=== PATIENT | female | born 1940 | race Caucasian/White ===

== ENCOUNTER 2016-05-05 13:13 | Emergency (ER) | payer OTHER ==
[~2016-05-05 13:13] MED LIST: ALBU18002 INH; ASPCH81X PO; CALCTAB7 PO; CEFD300C3 PO; CODCAP PO; CORACAP6 PO; LPT40 PO; LSN40 PO; MAGN400T5 PO; METO1TAB70 PO; MULTTAB PO; POTA1TAB PO; [UNRECOGNIZED DRUG - CODE] PO
[2016-05-05 13:20] VITALS: TEMP 36.3
[2016-05-05] MEDS ORDERED: NAPR1TAB9 PO (13:41)
[2016-05-05] MEDS ORDERED: FRS/40 PO (13:41)
[2016-05-05 14:53] LABS: BASO % 0.5 %; BASO ABS # 0.04 K/uL (0-0.2); COMPLETE YES; HEMATOCRIT 43.3 % (37-47); IG% 0.4 %; LYMPH % 22.5 %; LYMPH ABS # 1.87 K/uL (1.2-3.4); MEAN CELL VOLUME 93.1 fL (80-100); MEAN CORPUSCULAR HEMOGLOBIN 30.3 pg (25-34); MEAN CORPUSCULAR HGB CONC 32.6 g/dl (32-36); MEAN PLATELET VOLUME 9.4 fL (7.4-10.4); MONO % 11.3 %; NEUT % 63.3 %; PLATELET COUNT 193 K/uL (130-400); RED BLOOD COUNT 4.65 M/uL (4.2-5.4); WHITE BLOOD COUNT 8.32 K/uL (4.8-10.8)
[2016-05-05 15:01] LABS: PROTHROMBIN TIME (PATIENT) 10.8 SECONDS (9.0-12.0)
[2016-05-05 15:44] LABS: BLOOD UREA NITROGEN 20 mg/dl (7-18); BUN/CREATININE RATIO 24.3 (10-20); CALCIUM 8.6 mg/dl (8.5-10.1); CARBON DIOXIDE 32 mmol/L (21-32); CHLORIDE 104 mmol/L (98-107); CREATININE 0.83 mg/dl (0.60-1.20); GLUCOSE 114 mg/dl (70-99); SODIUM 142 mmol/L (136-145)
--- NOTE | 2016-05-05 15:45 | DIAGNOSTIC IMAGING REPORT ---
EXAMINATION: PELVIC ULTRASOUND CLINICAL HISTORY: eval for mass VAGINAL BLEEDING COMPARISON STUDY: None FINDINGS: The uterus measured enlarged at 9.5 cm.. The endometrial stripe measured thickened heterogeneous endometrium measuring up to 2.4 cm. The right ovary measured not seen presumably due to atrophic change. The left ovary measured not seen presumably due to atrophic change.. There was no evidence of pathologic free pelvic fluid. IMPRESSION: Enlarged heterogeneous uterus. Thickened endometrium considered abnormal for age at 2.4 cm. Diagnostic possibilities include endometrial neoplasia versus hyperplasia Electronically signed by: Jimmy Cavanaugh M.D. 05/05/2016 3:44 PM Dictated Date/Time: 05/05/2016 3:42 PM
[2016-05-05 16:05] VITALS: BP 180/101; PULSE 88; O2SAT 95
--- NOTE | 2016-05-05 19:42 | EMERGENCY ROOM VISIT NOTE ---
History Report prepared by Blaise: Verna Ang Under the Supervision of: Dr. Zbigniew Pressley M.D. First contact with patient: 13:47 Chief Complaint: ED VAG BLEEDING Stated Complaint: BLEEDING FROM VAGINA History of Present Illness The patient is a 76 year old female who presents to the Emergency Room with complaints of vaginal bleeding beginning 2 days ago. The patient is unable to quantify how many pads she uses a day. She notes that her blood was dark and brown when she saw it. She denies any weight loss, abdominal pain pain, fever, vomiting, history of uterine or ovarian cancer, rectal bleeding, and urinary symptoms. Source of History: patient Onset: 2 days ago Position: other (vaginal) Quality: other (dark bleeding) Timing: constant Associated Symptoms: No abdominal pain, No fevers, No urinary symptoms, No vomiting Note: She denies any weight loss, history of uterine or ovarian cancer. Review of Systems See HPI for pertinent positives & negatives. A total of 10 systems reviewed and were otherwise negative. Past Medical & Surgical Medical Problems: (1) Cellulitis (2) COPD (chronic obstructive pulmonary disease) Surgical Problems: (1) History of tubal ligation Family History Diabetes mellitus FATHER FHx: coronary artery disease MOTHER RI MOTHER Social History Smoking Status: Former Smoker Drug Use: none Marital Status: Occupation Status: retired Current/Historical Medications Scheduled Aspirin (Aspirin Chewable), 81 MG PO DAILY Atorvastatin (Atorvastatin Calcium), 40 MG PO QPM Calcium Carbonate-Vitamin D W/ (Caltrate 600 Plus), 1 TAB PO DAILY Cod Liver Oil (Cod Liver Oil), 2 CAP PO BID Furosemide (Lasix), 40 MG PO QAM Lisinopril (Lisinopril), 40 MG PO QPM Magnesium Oxide (Mag-Ox), 400 MG PO DAILY Metoprolol Succinate (Toprol Xl), 200 MG PO QAM Multivitamins/Minerals (Mvi With Minerals), 1 TAB PO DAILY Naproxen (Aleve), 440 MG PO QAM Potassium Gluconate (Potassium Gluconate), 595 MG PO DAILY Scheduled PRN Albuterol Sulfate (Proair Respiclick), 2 PUFFS INH Q4 PRN for Shortness of Breath Allergies Coded Allergies: Oxycodone (Verified Adverse Reaction, Mild, CONSTIPATION, 05/05/16) Propoxyphene (Verified Adverse Reaction, Mild, CONSTIPATION, 05/05/16) Physical Exam Vital Signs Date Time Temp Pulse Resp B/P Pulse Ox O2 Delivery O2 Flow Rate FiO2 05/05/16 16:05 88 20 180/101 95 Nasal Cannula 2.0 05/05/16 13:20 36.3 60 18 142/77 95 Nasal Cannula 2.0 Physical Exam Constitutional: Vital signs reviewed. Eyes: Pupils are equal round reactive to light. Conjunctiva are noninjected. ENT: Pharynx is clear without erythema or exudate. Mucous membranes are moist. Neck supple without meningeal signs. Respiratory: Clear to auscultation bilaterally. Breath sounds are equal bilaterally. Cardiovascular: Regular rate and rhythm. No rubs or gallops. GI: Soft, nondistended and nontender. Bowel sounds are present. Musculoskeletal: Bilateral lower extremity edema, chronic discoloration. No cellulitis. Integumentary: No cyanosis. Neurological: The patient is awake and alert. No focal deficits. Psychiatric: Normal affect. Medical Decision & Procedures ER Provider Diagnostic Interpretation: US results as stated below per my review and radiologist interpretation. EXAMINATION: PELVIC ULTRASOUND FINDINGS: The uterus measured enlarged at 9.5 cm.. The endometrial stripe measured thickened heterogeneous endometrium measuring up to 2.4 cm. The right ovary measured not seen presumably due to atrophic change. The left ovary measured not seen presumably due to atrophic change.. There was no evidence of pathologic free pelvic fluid. IMPRESSION: Enlarged heterogeneous uterus. Thickened endometrium considered abnormal for age at 2.4 cm. Diagnostic possibilities include endometrial neoplasia versus hyperplasia Electronically signed by: Jimmy Cavanaugh M.D. 05/05/2016 3:44 PM Dictated Date/Time: 05/05/2016 3:42 PM Laboratory Results 05/05/16 14:46 Red Blood Count 4.65, Mean Corpuscular Volume 93.1, Mean Corpuscular Hemoglobin 30.3, Mean Corpuscular Hemoglobin Concent 32.6, Mean Platelet Volume 9.4, Neutrophils (%) (Auto) 63.3, Lymphocytes (%) (Auto) 22.5, Monocytes (%) (Auto) 11.3, Eosinophils (%) (Auto) 2.0, Basophils (%) (Auto) 0.5, Neutrophils # (Auto ) 5.27, Lymphocytes # (Auto) 1.87, Monocytes # (Auto) 0.94, Eosinophils # (Auto ) 0.17, Basophils # (Auto) 0.04 05/05/16 14:46 Test 05/05/16 14:46 White Blood Count 8.32 K/uL (4.8-10.8) Red Blood Count 4.65 M/uL (4.2-5.4) Hemoglobin 14.1 g/dL (12.0-16.0) Hematocrit 43.3 % (37-47) Mean Corpuscular Volume 93.1 fL (80-100) Mean Corpuscular Hemoglobin 30.3 pg (25-34) Mean Corpuscular Hemoglobin Concent 32.6 g/dl (32-36) Platelet Count 193 K/uL (130-400) Mean Platelet Volume 9.4 fL (7.4-10.4) Neutrophils (%) (Auto) 63.3 % Lymphocytes (%) (Auto) 22.5 % Monocytes (%) (Auto) 11.3 % Eosinophils (%) (Auto) 2.0 % Basophils (%) (Auto) 0.5 % Neutrophils # (Auto) 5.27 K/uL (1.4-6.5) Lymphocytes # (Auto) 1.87 K/uL (1.2-3.4) Monocytes # (Auto) 0.94 K/uL (0.11-0.59) Eosinophils # (Auto) 0.17 K/uL (0-0.5) Basophils # (Auto) 0.04 K/uL (0-0.2) RDW Standard Deviation 55.3 fL (36.4-46.3) RDW Coefficient of Variation 16.4 % (11.5-14.5) Immature Granulocyte % (Auto) 0.4 % Immature Granulocyte # (Auto) 0.03 K/uL (0.00-0.02) Prothrombin Time 10.8 SECONDS (9.0-12.0) Prothromb Time International Ratio 1.0 (0.9-1.1) Activated Partial Thromboplast Time 25.3 SECONDS (21.0-31.0) Partial Thromboplastin Ratio 1.0 Anion Gap 6.0 mmol/L (3-11) Estimated GFR () 78.8 Estimated GFR (Non- 68.0 BUN/Creatinine Ratio 24.3 (10-20) Calcium Level 8.6 mg/dl (8.5-10.1) Laboratory results as reviewed by ky. ED Course 1347: The patient was evaluated in room C1. A complete history and physical exam was performed. 1557: I discussed the test results with the patient. She does not have a automotive service porter so I paged Dr. Giles of [facility] gynecology. 1400: I spoke to Dr. Giles, he recommends outpatient biopsy. 1402: I discussed the treatment plan with the patient. 1407: Upon reevaluation, the patient appeared to have improvement of her symptoms. I discussed tonight's findings with the patient. She verbalized agreement of the treatment plan. The patient was discharged home. Medical Decision This is a 76-year-old female presents with uterine bleeding. Differential diagnosis includes polyp, fibroid, endometrial cancer, uterine cancer, ovarian cancer. I did perform a limited focused review of portions of the patient's old chart on the electronic medical record. The patient has had no recent pertinent visits to this hospital. I did evaluate the patient as noted above. IV access was established. I did order and review the patient's blood work as noted in the electronic medical record. She does not have anemia. I did order an ultrasound of the pelvis. I did review the images myself as well as the radiology report as described above. She does have an enlarged heterogeneous uterus with thickened endometrium. I did discuss the test results with the patient. She will require outpatient endometrial biopsy and further workup. I did discuss the case with Dr. Stern of gynecology. He stated that the patient should call on Saturday for an appointment for an outpatient biopsy. He did not request any further testing in the ED. I did discuss the plan with the patient. She and her daughter were content with this plan. They were given return instructions as outlined below. Consults Time Called: 1556 Consulting Physician: Dr. Giles - [facility] Returned Call: [address] Giles, he recommends outpatient biopsy. Impression Primary Impression: Abnormal vaginal bleeding Scribe Attestation The scribe's documentation has been prepared under my direct and personally reviewed by me in its entirety. I confirm that the note above accurately reflects all work, treatment, procedures, and medical decision making performed by me. Departure Information Dispostion Home / Self-Care Referrals Anthony Patrick M.D. (PCP) Forms HOME CARE DOCUMENTATION FORM, IMPORTANT VISIT INFORMATION, WORK / SCHOOL INSTRUCTIONS Patient Instructions ED Bleed Irregular Vaginal, My [facility] Additional Instructions You have been examined and treated today on an emergency basis only. This is not a substitute for, or an effort to provide, complete comprehensive medical care. It is impossible to recognize and treat all injuries or illnesses in a single emergency department visit. It is therefore important that you follow up closely with Dr. Stern of gynecology for outpatient workup including endometrial biopsy. Call as soon as possible for an appointment. Return for worsening symptoms or if you develop fever, vomiting, lightheadedness, shortness of breath, abdominal pain or any other concerning symptoms.
[2016-07-17] MEDS ORDERED: DOXY25TA19 PO (12:39)
[2016-07-17] MEDS ORDERED: LISI40TA PO (12:39)
== END 2016-05-05 16:21 | disposition home or self-care (01) ==
LOC: C.EDB 13:14 → C.EDC 16:21
DX: N93.9 Abnormal uterine and vaginal bleeding, unspecified (principal); J44.9 Chronic obstructive pulmonary disease, unspecified; Z79.82 Long term (current) use of aspirin; Z79.899 Other long term (current) drug therapy

== ENCOUNTER → 2016-05-14 | Outpatient (CLI) | payer OTHER ==
[~2016-05-14] MED LIST changes: -CEFD300C3 PO; -CORACAP6 PO; +DOXY25TA19 PO; +FRS/40 PO; +LISI40TA PO; +NAPR1TAB9 PO; -[UNRECOGNIZED DRUG - CODE] PO
== END | disposition home or self-care (01) ==
LOC: C.PATHSPEC 15:32
PROVIDERS: ATTEND Obstetrics & Gynecology
DX: N95.0 Postmenopausal bleeding (principal)

== ENCOUNTER → 2016-05-14 | Outpatient (CLI) | payer OTHER ==
--- NOTE | 2016-05-22 08:39 | CODING QUERY MEDICAL NECESSITY ---
SUPPORTING DIAGNOSIS NEEDED Dr. Vaughan, A supporting diagnosis is required for the test/procedure performed on this patient in order for us to be reimbursed by the patient's insurance. Please provide a supporting diagnosis for the following test/procedure listed below next to the test name along with your signature. *If there is no additional diagnosis for this patient that would support the following test/procedure please document that below next to the test/procedure. Test(s)/Procedure(s) that require a supporting diagnosis: * ([id number]) SCREENING PAP SMEARS DIAGNOSIS: DATE OF SERVICE: 05/14/16 Provider Signature: Date: Thank you Kendell Ernandez [facility] Information Management Once completed, please kindly fax back to [phone] For questions please call [phone]
== END | disposition home or self-care (01) ==
LOC: C.PAPS 17:10
PROVIDERS: ATTEND Obstetrics & Gynecology
DX: N95.0 Postmenopausal bleeding (principal); N93.9 Abnormal uterine and vaginal bleeding, unspecified

== ENCOUNTER → 2016-06-22 | Outpatient (CLI) | payer OTHER ==
[2016-06-22 12:03] LABS: HEMATOCRIT 46.1 % (37-47); MEAN CELL VOLUME 94.3 fL (80-100); MEAN CORPUSCULAR HEMOGLOBIN 29.9 pg (25-34); MEAN CORPUSCULAR HGB CONC 31.7 g/dl (32-36); MEAN PLATELET VOLUME 9.8 fL (7.4-10.4); PLATELET COUNT 222 K/uL (130-400); RED BLOOD COUNT 4.89 M/uL (4.2-5.4); WHITE BLOOD COUNT 7.24 K/uL (4.8-10.8)
[2016-06-22 12:16] LABS: ALT/SGPT 38 U/L (12-78); BLOOD UREA NITROGEN 23 mg/dl (7-18); BUN/CREATININE RATIO 23.8 (10-20); CALCIUM 9.2 mg/dl (8.5-10.1); CARBON DIOXIDE 31 mmol/L (21-32); CHLORIDE 105 mmol/L (98-107); CHOLESTEROL 144 mg/dl (0-200); CREATININE 0.95 mg/dl (0.60-1.20); GLUCOSE 118 mg/dl (70-99); MAGNESIUM 2.2 mg/dl (1.8-2.4); POTASSIUM 4.4 mmol/L (3.5-5.1); SODIUM 144 mmol/L (136-145)
[2016-06-22 12:20] LABS: ALB/GLOB RATIO 0.9 (0.9-2); ALKALINE PHOSPHATASE 78 U/L (45-117); AST/SGOT 27 U/L (15-37); CHOLESTEROL/HDL RATIO 3.6; HDL CHOLESTEROL 40 mg/dl; LDL CHOLESTEROL CALCULATED 79 mg/dl; TRIGLYCERIDES 125 mg/dl (0-150); VERY LOW DENSITY LIPOPROT CALC 25 mg/dl
== END | disposition home or self-care (01) ==
LOC: C.LABBFT 09:15
PROVIDERS: ATTEND Physician Assistant
DX: I25.10 Atherosclerotic heart disease of native coronary artery without angina pectoris (principal); E83.42 Hypomagnesemia; E78.5 Hyperlipidemia, unspecified

== ENCOUNTER → 2016-07-05 | Outpatient (CLI) | payer OTHER ==
[~2016-07-05] MED LIST changes: -CODCAP PO; +CODCAP4 PO; +METO-648 PO; -METO1TAB70 PO
[2016-07-05 17:32] LABS: BASO % 0.5 %; BASO ABS # 0.04 K/uL (0-0.2); COMPLETE YES; EOS % 1.8 %; HEMATOCRIT 46.1 % (37-47); IG% 0.4 %; LYMPH ABS # 1.68 K/uL (1.2-3.4); MEAN CELL VOLUME 93.9 fL (80-100); MEAN CORPUSCULAR HEMOGLOBIN 29.9 pg (25-34); MEAN CORPUSCULAR HGB CONC 31.9 g/dl (32-36); MEAN PLATELET VOLUME 9.8 fL (7.4-10.4); MONO % 8.3 %; PLATELET COUNT 231 K/uL (130-400); RED BLOOD COUNT 4.91 M/uL (4.2-5.4); WHITE BLOOD COUNT 7.62 K/uL (4.8-10.8)
[2016-07-05 17:40] LABS: PARTIAL THROMBOPLASTIN RATIO 1.1; PROTHROMBIN TIME (PATIENT) 10.9 SECONDS (9.0-12.0)
[2016-07-05 17:47] LABS: ALT/SGPT 35 U/L (12-78); AST/SGOT 25 U/L (15-37); BLOOD UREA NITROGEN 19 mg/dl (7-18); BUN/CREATININE RATIO 23.2 (10-20); CALCIUM 9.1 mg/dl (8.5-10.1); CARBON DIOXIDE 34 mmol/L (21-32); CHLORIDE 107 mmol/L (98-107); GLUCOSE 111 mg/dl (70-99); POTASSIUM 4.2 mmol/L (3.5-5.1); SODIUM 145 mmol/L (136-145)
[2016-07-05 17:50] LABS: ALB/GLOB RATIO 1.1 (0.9-2); ALKALINE PHOSPHATASE 70 U/L (45-117)
== END | disposition home or self-care (01) ==
LOC: C.LABBFT 13:52
PROVIDERS: ATTEND Physician Assistant Medical
DX: Z01.818 Encounter for other preprocedural examination (principal); I25.10 Atherosclerotic heart disease of native coronary artery without angina pectoris; J44.9 Chronic obstructive pulmonary disease, unspecified

== ENCOUNTER 2016-07-27 05:34 | Day surgery (SDC) | payer OTHER ==
[2016-07-17 12:40] VITALS: BMI 46.0
--- NOTE | 2016-07-20 12:35 | PAT Medication Instructions ---
Service Date Jul 20, 2016. Current Home Medication List Albuterol Sulfate (Proair Respiclick), 2 PUFFS INH Q4 PRN for Shortness of Breath Aspirin (Aspirin Chewable), 81 MG PO QAM Atorvastatin (Atorvastatin Calcium), 40 MG PO QPM Calcium Carbonate-Vitamin D W/ (Caltrate 600 Plus), 1 TAB PO QAM Cod Liver Oil (Cod Liver Oil), 2 CAP PO BID Doxylamine Succinate (Sleep) (Sleep Aid), 1 TAB PO HS Furosemide (Lasix), 40 MG PO QAM Lisinopril (Zestril), 40 MG PO QPM Magnesium Oxide (Mag-Ox), 400 MG PO QAM Metoprolol Succinate (Toprol Xl), 200 MG PO QAM Multivitamins/Minerals (Mvi With Minerals), 1 TAB PO QAM Naproxen (Aleve), 440 MG PO QAM Potassium Gluconate (Potassium Gluconate), 595 MG PO QPM Medication Instructions For Your Scheduled Surgery Aspirin (Aspirin Chewable), 81 MG PO QAM (check with surgeon/blow down operator for instructions) Naproxen (Aleve), 440 MG PO QAM (check with surgeon for instructions) - Hold the following medications starting 07/20/16: Cod Liver Oil (Cod Liver Oil), 2 CAP PO BID - Hold the following medications the morning of surgery: Multivitamins/Minerals (Mvi With Minerals), 1 TAB PO QAM Magnesium Oxide (Mag-Ox), 400 MG PO QAM Furosemide (Lasix), 40 MG PO QAM Calcium Carbonate-Vitamin D W/ (Caltrate 600 Plus), 1 TAB PO QAM - Take the following medications the morning of surgery with a sip of water: Metoprolol Succinate (Toprol Xl), 200 MG PO QAM Albuterol Sulfate (Proair Respiclick), 2 PUFFS INH Q4 PRN for Shortness of Breath (bring with you to hospital morning of surgery) - Hold the following medications as scheduled the night before surgery: Lisinopril (Zestril), 40 MG PO QPM - Take the following medications as scheduled the night before surgery: Potassium Gluconate (Potassium Gluconate), 595 MG PO QPM Doxylamine Succinate (Sleep) (Sleep Aid), 1 TAB PO HS Atorvastatin (Atorvastatin Calcium), 40 MG PO QPM Albuterol Sulfate (Proair Respiclick), 2 PUFFS INH Q4 PRN for Shortness of Breath If you have any questions please call us at [phone] (Melvi Goncalves PA-C) or [phone] or [phone]
--- NOTE | 2016-07-20 12:46 | HISTORY & PHYSICAL EXAMINATION ---
DATE OF ADMISSION: 07/27/2016 ADMITTING DIAGNOSIS: Post-menopause will bleeding. ADMISSION HISTORY: The patient is a 76-year-old 4, para 4-0-0-3, postmenopausal female, who is admitted for diagnostic hysteroscopy and D\T\C for postmenopausal bleeding. The patient presented to our clinic in May of this year for evaluation of this problem. At that time, she states that she had had a 3-6 month history of vaginal bleeding. Her primary care provider had ordered a pelvic ultrasound, which showed a thickened endometrial lining of 2.4 cm. The patient was evaluated by my partner, Dr. Luis Enrique Khan, who did an office endometrial biopsy. Results of that biopsy showed inactive endometrium and primarily blood clot. Because of the postmenopausal bleeding and concerning endometrial ultrasound, the patient has been admitted for the above listed procedures. The patient has multiple medical problems and has been seen both by the internal medicine as well as cardiology and she has received preoperative clearance for this procedure. PAST MEDICAL HISTORY: OBSTETRIC: x4. GYNECOLOGIC: As above. MEDICAL: Hypertension, coronary artery disease, chronic diastolic congestive heart failure, chronic obstructive lung disease, paroxysmal atrial tachycardia, peripheral edema, and premature ventricular contractions. SURGICAL: Total hip replacement. ALLERGIES: No known drug allergies. SOCIAL HISTORY: No smoking. FAMILY HISTORY: Noncontributory. REVIEW OF SYSTEMS: As per HPI. PHYSICAL EXAMINATION: GENERAL: Today shows a pleasant obese female, wheelchair dependent, but in no acute distress. VITAL SIGNS: Show blood pressure of 142/90 and a weight of 283 pounds. HEENT EXAMINATION: Unremarkable. NECK: Supple. LUNGS: Clear. HEART: With a regular rhythm and rate. ABDOMEN: Obese and nontender with no palpable masses. No rebound, no guarding, and no organomegaly. Positive bowel sounds. PELVIC: Shows atrophic external genitalia with. The vaginal vault is pale. There is a grade 2 cystocele and grade 2 rectocele. The cervix is multiparous in appearance posterior and atrophic. Bimanual examination, the uterus, tubes, and ovaries are not palpable secondary to the patient habitus. EXTREMITIES: Shows +3 edema, but no deep calf tenderness. IMPRESSION: A 76-year-old G4, P4, postmenopausal female diagnostic hysteroscopy and D\T\C for postmenopausal bleeding. PLAN: The patient has received clearance from internal medicine as well as cardiology. The risks, benefits and alternatives to the surgery have been discussed. While the benefits will be evaluation of the endometrial lining, the risks are bleeding, infection, inadvertent perforation of the uterus and failure to diagnose and/or treat the underlying cause for postmenopausal bleeding. The patient understands that. Permit has been signed and she wishes to proceed. PAUL
--- NOTE | 2016-07-20 12:54 | DIAGNOSTIC IMAGING REPORT ---
CHEST 2 VIEWS ROUTINE CLINICAL HISTORY: Preoperative chest COMPARISON STUDY: 02/17/2016 FINDINGS: The heart is mildly enlarged. There are old left-sided rib fractures. There is no failure. There is no focal pulmonary consolidation. There are no pleural effusions. There is subsegmental atelectasis/scarring at the lung bases.[ IMPRESSION: No active disease in the chest. Electronically signed by: Saurabh Lugo M.D. 07/20/2016 12:52 PM Dictated Date/Time: 07/20/2016 12:51 PM
[~2016-07-27] VITALS: Ht 164.5 cm; Wt 128.6 kg
[2016-07-27 05:53] VITALS: BP 145/63; PULSE 74; TEMP 37.3; O2SAT 93; Ht 164.5 cm; Wt 128.6 kg
[2016-07-27] MEDS ORDERED: LACTATED RINGER'S 1000ML 1,000 ML IV SCH (06:00)
[2016-07-27] MEDS ORDERED: LACTATED RINGER'S 1000ML IV SCH (06:00)
--- NOTE | 2016-07-27 07:00 | History & Physical Bridge Note ---
H&P Re-Evaluation Bridge Note: I have examined the patient, reviewed the History & Physical and in the interval since the performance of the History & Physical I have noted the following changes of clinical significance: Patient states she fell yesterday and 'hurt" her left foot. Pt with chronic edema, does not appear different from previous exam, no deep calf tenderness. Already planning pressure stockings. OK to proceed with surgery.
[2016-07-27] MEDS ORDERED: MIDAZOLAM HCL 1 MG/ML 2ML VIAL ONE (07:01)
[2016-07-27] MEDS ORDERED: FENTANYL CITRATE INJ 50 MCG/1 ML 2 ML VIAL ONE (07:01)
[2016-07-27] MEDS ORDERED: SODIUM CHLORIDE 0.9% 1000ML 1,000 ML IV SCH (08:13)
[2016-07-27] MEDS ORDERED: HYDROCODONE/ACETAMOPHEN 5/325MG TAB PO PRN (08:15)
[2016-07-27] MEDS ORDERED: IBUPROFEN 600 MG TAB PO PRN (08:15)
[2016-07-27] MEDS ORDERED: ONDANSETRON INJ 2 MG/ML 2 ML VIAL IV PRN (08:15)
--- NOTE | 2016-07-27 08:16 | [facility] Post Operative Brief Note ---
Immediate Operative Summary Operative Date Jul 27, 2016. Pre-Operative Diagnosis Postmenopausal Bleeding Post-Operative Diagnosis Postmenopausal Bleeding Procedure(s) Performed 1) Dx Hysteroscopy 2) Myosure curretage of endometrium Surgeon Dr. Morrow Brand Representative Surgeon(s) none Estimated Blood Loss minimal Fluids (cc crystalloids) 200 Specimens Endometrial lining Drains None Anesthesia General Complication(s) None Disposition Recovery Room / PACU
--- NOTE | 2016-07-27 08:20 | Discharge Instructions-SurgCtr ---
Discharge Instructions Date of Service Jul 27, 2016. Visit Reason for Visit: Post Menopausal Bleeding Discharge Discharge Diagnosis / Problem: same Discharge Goals Goal(s): Therapeutic intervention Activity Recommendations Activity Limitations: as noted below Anesthesia . Post Anesthesia Instructions: If you have had General Anesthesia or IV Sedation: * Do not drive today. * Resume driving when surgeon permits. * Do not make important decisions or sign legal documents today. * Call surgeon for: 1. Temperature elevations greater than 101 degrees F. 2. Uncontrollable pain. 3. Excessive bleeding. 4. Persistent nausea and vomiting. 5. Medication intolerance (nausea, vomiting or rash). * For nausea and vomiting use only clear liquids such as: tea, soda, bouillon until nausea subsides, then gradually increase diet as tolerated. * If you have any concerns or questions, call your surgeon's office. If physician is unavailable and it is an emergency, call 911 or go to the nearest emergency room. . Instructions / Follow-Up Instructions / Follow-Up ACTIVITY RECOMMENDATIONS: * Avoid tampons, douching, hot tubs, pools, and intercourse until bleeding has stopped. * May shower as usual. * No strenuous activity for 24-48 hours. After 24-48 hours, you may do anything you feel like doing (driving and sports are okay). SPECIAL CARE INSTRUCTIONS: Special Diet: * Mild nausea may occur in the immediate post-operative period. * Take clear liquids such as tea, cola or bouillon until all nausea has subsided; you may then resume your normal diet. Special Care: * Light bleeding and vaginal spotting can last from a few days to 3-4 weeks. Call your doctor if bleeding becomes heavier than the heaviest part of your period. * Check your temperature twice a day for one week. If it goes above 100.4 degrees Fahrenheit (38.0 Celsius), notify your doctor. * Call your doctor's office for an appointment for 6 weeks after your surgery. FOLLOW-UP VISIT: Call your doctor's office for an appointment for 6 weeks after your surgery. Diet Recommendations Home Diet: resume previous diet Procedures Procedures Performed: 1) Dx Hysteroscopy 2) Myosure curretage of endometrium Pending Studies Studies pending at discharge: yes List of pending studies: Pathology from procedure Medical Emergencies . Who to Call and When: Medical Emergencies: If at any time you feel your situation is an emergency, please call 911 immediately. . Non-Emergent Contact Non-Emergency issues call your: Outdoor Recreation Specialist Call Non-Emergent contact if: temperature is above 100.5 . . "Provider Documentation" section prepared by Hernandez Morrow. . [place] Drug Monitoring Program Search Results: patient reviewed within database, no issues identified
--- NOTE | 2016-07-27 08:28 | OPERATIVE REPORT ---
DATE OF OPERATION: 07/27/2016 PREOPERATIVE DIAGNOSIS: Postmenopausal bleeding. POSTOPERATIVE DIAGNOSIS: Same. PROCEDURE PERFORMED: 1. Diagnostic hysteroscopy. 2. MyoSure curettage of endometrial lining. SURGEON: Dr. Morrow. ANESTHESIA: General. FINDINGS: Hysteroscopic examination of the endometrial lining showed a thickened endometrium along the anterior surface of the uterus. MyoSure instrument was used to curettage endometrial lining and send for pathological evaluation. Fluid deficit for the procedure 100 mL. PROCEDURE NOTE: The patient was taken to the operating room and after general anesthesia, was placed in dorsal lithotomy position and draped and prepped in the usual fashion. Bladder was drained of any residual urine. Single tooth tenaculum was used to grasp the anterior lip of the cervix. The uterus was sounded to 7 cm and the cervical os was dilated with Lomas dilators to a Lomas #23. A diagnostic hysteroscope was inserted into the endometrial cavity with description as above. Hysteroscope was removed and the MyoSure hysteroscope was inserted. MyoSure instrument was then inserted through the MyoSure scope and under direct visualization, all endometrial tissue was curettaged with the machine and sent for pathological evaluation. Post-procedure hysteroscopy showed a denuded endometrium. Fluid deficit for the procedure 100 mL. The patient was taken out of dorsal lithotomy and to recovery room in satisfactory condition. I attest to the content of the Intraoperative Record and any orders documented therein. Any exceptio ns are noted below.
[2016-07-27] MEDS ORDERED: DEXAMETHASONE SOD INJ 4 MG/ML VIAL ONE (08:42)
[2016-07-27] MEDS ORDERED: ONDANSETRON INJ 2 MG/ML 2 ML VIAL ONE (08:42)
[2016-07-27] MEDS ORDERED: PROPOFOL IV EMULSION 10 MG/ML 20 ML VIAL IV ONE (08:42)
[2016-07-27] MEDS ORDERED: LIDOCAINE HCL 2% 2 ML VIAL (20MG/ML) ONE (08:42)
[2016-07-27] MEDS ORDERED: SUCCINYLCHOLINE CHLORIDE 20 MG/ML 10 ML VIAL IV ONE (08:42)
[2016-07-27] MEDS ORDERED: EpHEDrine SULFATE INJ 50 MG/ML AMP IV PRN (08:45)
[2016-07-27] MEDS ORDERED: ATROPINE SULFATE 0.1 MG/ML 5ML SYR IV PRN (08:45)
[2016-07-27] MEDS ORDERED: HydrALAZINE HCL 20 MG/ML VIAL ONE (08:46)
[2016-07-27] MEDS ORDERED: CEROVITE ADV FORMULA TAB PO SCH (09:00)
[2016-07-27] MEDS ORDERED: FUROSEMIDE 40 MG TAB PO SCH (09:00)
[2016-07-27] MEDS ORDERED: NURSING VERBAL MED ORDER ONE (09:00)
[2016-07-27] MEDS ORDERED: METOPROLOL SUCC 50MG EXT REL TAB PO SCH (09:00)
[2016-07-27] MEDS ORDERED: MAGNESIUM OXIDE 400 MG TAB PO SCH (09:00)
[2016-07-27] MEDS ORDERED: ASPIRIN 81 MG CHEW PO SCH (09:00)
[2016-07-27] MEDS ORDERED: CALCIUM 600MG + VIT D 400 IU TAB PO SCH (09:00)
--- NOTE | 2016-07-27 09:15 | Anesthesiology Progress Note ---
Anesthesia Post Op Note Date & Time Jul 27, 2016 at 09:15 Vital Signs Pain Intensity: 0 Vital Signs Past 12 Hours Date Time Temp Pulse Resp B/P Pulse Ox O2 Delivery O2 Flow Rate FiO2 07/27/16 09:07 65 23 07/27/16 09:07 65 23 94 07/27/16 09:04 163/86 07/27/16 09:02 66 24 94 07/27/16 09:02 68 24 07/27/16 09:01 163/86 07/27/16 08:59 69 23 88 07/27/16 08:59 70 23 07/27/16 08:58 166/76 07/27/16 08:56 185/81 07/27/16 08:54 68 21 07/27/16 08:54 21 07/27/16 08:51 161/86 07/27/16 08:49 72 20 07/27/16 08:49 67 20 100 07/27/16 08:46 166/84 07/27/16 08:44 66 27 99 07/27/16 08:44 72 27 07/27/16 08:41 183/82 07/27/16 08:39 83 27 97 07/27/16 08:39 82 27 07/27/16 08:36 167/103 07/27/16 08:34 86 19 93 07/27/16 08:34 83 19 07/27/16 08:31 177/102 07/27/16 08:29 68 24 07/27/16 08:29 68 24 166/103 92 07/27/16 08:29 36.8 88 26 166/100 93 Mask 10 07/27/16 05:53 37.3 74 22 145/63 93 Nasal Cannula 2 Notes Mental Status: alert / awake / arousable, participated in evaluation Pt Amnestic to Procedure: Yes Nausea / Vomiting: adequately controlled Pain: adequately controlled Airway Patency, RR, SpO2: stable & adequate BP & HR: stable & adequate Hydration State: stable & adequate Anesthetic Complications: no major complications apparent
[2016-07-27 10:35] VITALS: BP 148/69; PULSE 68; TEMP 36.7; O2SAT 93
[2016-07-27] MEDS ORDERED: LISINOPRIL 40 MG TAB PO SCH (21:00)
[2016-07-27] MEDS ORDERED: ATORVASTATIN 40 MG TAB PO SCH (21:00)
== END 2016-07-27 10:45 | disposition home or self-care (01) ==
LOC: C.ACU 05:34
PROVIDERS: ATTEND Obstetrics & Gynecology
DX: N84.0 Polyp of corpus uteri (principal); N95.0 Postmenopausal bleeding; I10 Essential (primary) hypertension; I25.10 Atherosclerotic heart disease of native coronary artery without angina pectoris; I50.32 Chronic diastolic (congestive) heart failure; J44.9 Chronic obstructive pulmonary disease, unspecified; G47.33 Obstructive sleep apnea (adult) (pediatric); I48.91 Unspecified atrial fibrillation